=== PATIENT | female | born 1950 | race African-American/Black ===

== ENCOUNTER 2016-09-10 18:53 | Emergency (ER) | payer MEDICARE, BC ==
[2016-09-10 19:27] VITALS: BP 164/73
--- NOTE | 2016-09-10 21:14 | RADIOLOGY REPORT (SQ) ---
EXAM DESCRIPTION: SHOULDER RIGHT 2 OR MORE VIEWS COMPLETED DATE/TIME: 09/10/2016 8:54 pm REASON FOR STUDY: Fall, rt shoulder pain COMPARISON: None. NUMBER OF VIEWS: Three views. TECHNIQUE: Internal rotation, external rotation, and Y view images acquired of the right shoulder. LIMITATIONS: None. FINDINGS: MINERALIZATION: Normal. BONES: No acute fracture or dislocation. No worrisome bone lesions. JOINTS: No dislocation. VISUALIZED LUNGS AND RIBS: No pneumothorax. No rib fracture. SOFT TISSUES: No radiopaque foreign body. OTHER: No other significant finding. IMPRESSION: NEGATIVE STUDY OF THE RIGHT SHOULDER. NO RADIOGRAPHIC EVIDENCE OF ACUTE INJURY. TECHNICAL DOCUMENTATION: JOB ID: [id number] [employer]- All Rights Reserved
--- NOTE | 2016-09-10 21:15 | RADIOLOGY REPORT (SQ) ---
EXAM DESCRIPTION: TIBIA FIBULA LEFT COMPLETED DATE/TIME: 09/10/2016 8:54 pm REASON FOR STUDY: Fall, left leg pain and swelling COMPARISON: None. NUMBER OF VIEWS: Two views. TECHNIQUE: Two radiographic images acquired of the left tibia and fibula to include the knee and ank le in at least one projection. LIMITATIONS: None. FINDINGS: MINERALIZATION: Normal. BONES: No acute fracture or dislocation. No worrisome bone lesions. SOFT TISSUES: No obvious swelling or foreign body. OTHER: Patient is status post left total knee replacement. IMPRESSION: Status post left total knee replacement. NO RADIOGRAPHIC EVIDENCE OF ACUTE INJURY. TECHNICAL DOCUMENTATION: JOB ID: [id number] [employer]- All Rights Reserved
--- NOTE | 2016-09-10 21:42 | ER Document Report ---
ED Fall - General Chief Complaint: Arm Pain Stated Complaint: FALL/SHOULDER Time Seen by Provider: 09/10/16 20:58 Mode of Arrival: Wheelchair Information source: Patient Notes: 66-year-old female presents to ED for right shoulder and left lower leg pain. She was working in a flower while at bed sprain aunts when she tripped and fell landing on a piece of cement in her yard. He has a history of rheumatoid arthritis and bilateral knee replacement. TRAVEL OUTSIDE OF THE [place] IN LAST 30 DAYS: No - HPI Occurred: This afternoon Where: Home, Outdoors Context: Tripped Associated symptoms: None Location of injury/pain: Shoulder, Lower extremity Quality of pain: Achy, Sharp, Throbbing Severity: Mild Pain Level: 2 - Related data Allergies/Adverse Reactions: shellfish derived Allergy (Verified 03/10/16 10:20) Past Medical History - General Information source: Patient - Social History Smoking Status: Never Smoker Cigarette use (# per day): No Chew tobacco use (# tins/day): No Smoking Education Provided: No Frequency of alcohol use: None Drug Abuse: None Lives with: Family Family History: Reviewed & Not Pertinent Patient has suicidal ideation: No Patient has homicidal ideation: No - Past Medical History Cardiac Medical History: Reports: Hx Hypertension Pulmonary Medical History: Reports: None EENT Medical History: Reports: None Neurological Medical History: Reports: None Endocrine Medical History: Reports: None Renal/ Medical History: Reports: None Malignancy Medical History: Reports: None GI Medical History: Reports: Hx Gastroesophageal Reflux Disease, Hx Colonoscopy , Hx Endoscopy Musculoskeltal Medical History: Reports Hx Arthritis - rheumatoid Skin Medical History: Reports None Psychiatric Medical History: Reports: None Traumatic Medical History: Reports: None Infectious Medical History: Reports: None Past Surgical History: Reports: Hx Appendectomy, Hx Breast Surgery - Biopsy, Hx Cholecystectomy, Hx Orthopedic Surgery - BL knee replacement - Immunizations Hx Diphtheria, Pertussis, Tetanus Vaccination: Yes Review of Systems - Review of Systems Constitutional: No symptoms reported EENT: No symptoms reported Cardiovascular: No symptoms reported Respiratory: No symptoms reported Gastrointestinal: No symptoms reported Genitourinary: No symptoms reported Female Genitourinary: No symptoms reported Musculoskeletal: Other - Right shoulder and left lower leg pain Skin: Change in color, Other - Ecchymosis and very small abrasion to the left lower leg Hematologic/Lymphatic: No symptoms reported Neurological/Psychological: No symptoms reported Physical Exam - Vital signs Vitals: Temp Pulse Resp BP Pulse Ox 98.2 F 72 16 164/73 H 94 09/10/16 19:23 09/10/16 19:23 09/10/16 19:23 09/10/16 19:23 09/10/16 19:23 Interpretation: Normal - General General appearance: Appears well, Alert - HEENT Head: Normocephalic, Atraumatic Eyes: Normal Pupils: PERRL - Respiratory Respiratory status: No respiratory distress Chest status: Nontender Breath sounds: Normal Chest palpation: Normal - Cardiovascular Rhythm: Regular Heart sounds: Normal auscultation Murmur: No - Abdominal Inspection: Normal Distension: No distension Bowel sounds: Normal Tenderness: Nontender Organomegaly: No organomegaly - Back Back: Normal, Nontender - Extremities General upper extremity: Normal color, Normal temperature General lower extremity: Normal ROM, Normal temperature, Normal weight bearing. No: Ju's sign Shoulder: Tender, Limited ROM - The pain. No: Normal, Nontender, Abrasion, Deformity, Dislocation, Ecchymosis, Instability, Laceration, Other Arm: Normal, Nontender Elbow: Normal, Nontender Forearm: Normal, Nontender Wrist: Normal, Nontender Hand: Normal, Nontender Hip: Normal, Nontender Thigh: Normal, Nontender Knee: Normal, Nontender Calf: Tender, Abrasion - I will, Ecchymosis. No: Normal, Nontender, Deformity, Instability, Laceration, Unable to bear weight, Other Ankle: Normal, Nontender Foot: Normal, Nontender - Neurological Neuro grossly intact: Yes Cognition: Normal Orientation: AAOx4 [place] Coma Scale Eye Opening: Spontaneous Rafa Coma Scale Verbal: Oriented Rafa Coma Scale Motor: Obeys Commands Rafa Coma Scale Total: 15 Speech: Normal Motor strength normal: LUE, RUE, LLE, RLE Sensory: Normal - Psychological Associated symptoms: Normal affect, Normal mood - Skin Skin Temperature: Warm Skin Moisture: Dry Skin Color: Normal Course - Re-evaluation Re-evalutation: 09/10/16 22:02 Discussed chest x-rays with patient and family. Patient instructed on need to move shoulder and to continue her exercises as she has rheumatoid arthritis. Patient was treated with Toradol and Percocet in the emergency room for her pain and discharged home with a prescription for Percocet. Patient takes Aleve for her arthritis as well as other rheumatoid arthritis medications. Patient instructed on use of ice anti-inflammatory medication and exercise for her pain. - Vital Signs Vital signs: Temp Pulse Resp BP Pulse Ox 98.2 F 72 16 164/73 H 94 09/10/16 19:23 09/10/16 19:23 09/10/16 19:23 09/10/16 19:23 09/10/16 19:23 - Diagnostic Test Radiology reviewed: Image reviewed, Reports reviewed Discharge - Discharge Clinical Impression: Fall Qualifiers: Encounter type: initial encounter Qualified Code(s): W19.XXXA - Unspecified fall, initial encounter Right shoulder injury Qualifiers: Encounter type: initial encounter Qualified Code(s): S49.91XA - Unspecified injury of right shoulder and upper arm, initial encounter Contusion of left lower leg, initial encounter Qualifiers: Encounter type: initial encounter Qualified Code(s): S80.12XA - Contusion of left lower leg, initial encounter Additional Instructions: CONTUSION: Your injury has resulted in a contusion -- a crushing of the deep tissues. No injury to important structures was detected during the physician's exam. Contusions vary in the amount of pain they cause, and in the length of time required for healing. Typically, the area will become bruised, and will remain painful to touch for two or three weeks. However, most patients are back to working and playing within a few days. After the initial period of rest and cold-packs, your symptoms (together with the doctor's recommendations) will determine how rapidly you can get back to full activity. Usually this means "do what feels okay, but don't do things that hurt." If re-examination was recommended, it's important to follow up as instructed. Call the doctor or return any time if pain increases, if swelling becomes severe, if you develop numbness or weakness in an injured extremity, or if any other alarming symptoms occur. ABRASIONS: An abrasion is a scraping injury of the skin. Some scarring may result. The seriousness of an abrasion is not always obvious at first. Hidden tissue damage may be present and infection may occur despite proper care. Complete healing may take from ten days to as long as a month. The healing time depends on the depth of the abrasion, and on the amount of crushing of underlying tissues from the injury. Keep the wound and dressing clean. Do not shower or bathe the area until okayed by the doctor. If the dressing gets wet, remove it and blot the wound dry, then reapply a clean dressing. Dressings should be changed every day. Sunscreen should be used for six months after the skin is healed. If any signs of infection occur (swelling, redness, increasing tenderness, red streaks, profuse purulent drainage from the abrasion, tender lumps in the armpit or groin above the abrasion, or fever), see the doctor immediately. Shoulder Injury You have injured your shoulder. This usually results from stretching or tearing of the tendons during trauma. Time and protection are required in order to heal properly. Many injuries are quite disabling, and should be taken seriously. Initial treatment includes cold packs and a sling to rest the shoulder. The physician has assessed the seriousness of your injury, and has outlined a treatment plan. Understand that this treatment may change, depending on how you progress. If a re-examination was recommended, it is important that you follow up as instructed. Some shoulder injuries (such as partial tear of the rotator cuff) are only suspected after you've failed to improve. Call us if there's severe pain, numbness, or loss of function. ICE PACKS: Apply ice packs frequently against the painful area. Many different schedules are recommended, such as "20 minutes on, 20 minutes off" or "one hour ice, two hours rest." If you need to work, you may need to go longer between ice treatments. You should plan to have the area ice packed AT LEAST one fourth of the time. The ice should be applied over the wrap, tape, or splint, or over a layer of cloth -- not directly against the skin. Some ice bags have a built-in cloth and can be put directly on the skin. WARM PACKS: After approximately two days, apply gentle heat (such as a heating pad or hot water bottle) for about 20 to 30 minutes about every two hours -- at least four times daily. Warmth and elevation will help you make a more rapid recovery , and will ease the pain considerably. Do not use HOT heat, and never apply heat for longer than 30 minutes. The continuous heat can invisibly damage skin and muscles -- even when no burn is seen on the surface. Damaged muscles can make you MORE sore. Anti-Inflammatory Medication You have received a prescription for an antiinflammatory agent. This is an excellent, safe drug for pain control. In addition, it has potent antiinflammatory effects which are beneficial, especially in the treatment of injuries, arthritis, or tendonitis. It's best to take this medicine with food. Persons with ulcer disease or allergy to aspirin should notify their physician of this before taking this drug. Take the medication exactly as prescribed. Don't take additional doses unless instructed to do so by your doctor. If you develop wheezing, shortness of breath, hives, faintness, stomach pain, vomiting, or dark black stools, return for re-evaluation at once. Oral Narcotic Medication You have been given a prescription for pain control. This medication is a narcotic. It's best taken with food, as nausea can result if taken on an empty stomach. Don't operate machinery or drive within six hours of taking this medication. Do not combine this medicine with alcohol, or with any medication which can cause sedation (such as cold tablets or sleeping pills) unless you get permission from the physician. Narcotics tend to cause constipation. If possible, drink plenty of fluids and eat a diet high in fiber and fruits. FOLLOW-UP CARE: If you have been referred to a physician for follow-up care, call the physician s office for an appointment as you were instructed or within the next two days. If you experience worsening or a significant change in your symptoms, notify the physician immediately or return to the Emergency Department at any time for re-evaluation. Call your orthopedic doctor in the morning and reveal a follow-up visit for your shoulder injury. Prescriptions: Oxycodone HCl/Acetaminophen [Percocet 5-325 mg Tablet] 1 tab PO Q6HP PRN #15 tablet PRN Reason: Forms: Elevated Blood Pressure Referrals: ALBANIA ADHIKARI MD [Primary Care Provider] - Follow up as needed
[2016-09-10] MEDS ORDERED: KETOROLAC TROMETHAMINE 60 MG/2 ML SDV IM ONE (21:51)
[2016-09-10] MEDS ORDERED: OXYCODONE-ACETAMINOPHEN 5-325 MG TABLET PO ONE (21:51)
== END 2016-09-10 22:09 | disposition home or self-care (01) ==
LOC: ER 18:53
DX: S49.91XA Unspecified injury of right shoulder and upper arm, initial encounter (principal); S80.12XA Contusion of left lower leg, initial encounter; W01.198A Fall on same level from slipping, tripping and stumbling with subsequent striking against other object, initial encounter; Y92.007 Garden or yard of unspecified non-institutional (private) residence as the place of occurrence of the external cause; I10 Essential (primary) hypertension; Z91.013 Allergy to seafood; Z96.653 Presence of artificial knee joint, bilateral
CPT/HCPCS: 99283; 96372; 73030; 73590; J1885; A9270

== ENCOUNTER → 2016-10-02 | Outpatient (CLI) | payer MEDICARE, BC ==
--- NOTE | 2016-10-02 11:15 | RADIOLOGY REPORT (SQ) ---
EXAM DESCRIPTION: MRI RT UPPER JOINT WITHOUT COMPLETED DATE/TIME: 10/02/2016 10:46 am REASON FOR STUDY: RIGHT SHOULDER PAIN M25.511 PAIN IN RIGHT SHOULDER COMPARISON: 09/10/2016 TECHNIQUE: Right shoulder images acquired and stored on PACS. Multiplanar imaging to include fat sen sitive sequences such as T1, water sensitive sequences such as FST2/STIR, cartilage sensitive sequenc es such as FSPD/gradient-echo sequences. LIMITATIONS: None. FINDINGS: BONE MARROW AND CORTEX: A hairline nondisplaced fracture through the right proximal humeru s is present, extending through the greater tuberosity, this is best shown on sagittal T1 images 6 th rough 9, coronal image 12, and axial image 9. JOINT OR BURSAL EFFUSION: Small joint effusion. Trace fluid in the subacromial/subdeltoid bursa. GLENO-HUMERAL ARTICULATION: Normal alignment. No subluxation. No cystic change. No osteophytes. Mini mal chondromalacia. ACROMION AND AC JOINT: Type 2, with mild acromioclavicular joint hypertrophy. No down-sloping or dis sarah beth spur. Mild narrowing of the subacromial space. ROTATOR CUFF AND INTERVAL: There is mild undersurface high signal in the distal supraspinatus and inf raspinatus tendons from mild tendinopathy. No full-thickness tear. subscapularis intact. No rotator interval tear. No rotator interval thickening to suggest adhesive capsulitis. LABRUM AND BICEPS LABRAL COMPLEX: Intact. No labral tear. Intra-articular long-head biceps tendon n ormal. Distal biceps in normal location in bicipital groove. REMAINDER OF LABRUM AND IGHL : No gross tear or paralabral cyst formation. Labral evaluation is less than optimal without joint distention. No thickening of IGHL to suggest adhesive capsulitis. PERIARTICULAR AND ADJACENT SOFT TISSUES: No masses or abnormal nodes. OTHER: No other significant finding. IMPRESSION: Nondisplaced fracture of the right proximal humerus along the greater tuberosity, with m ild marrow edema. Mild undersurface tendinopathy of the supra and infraspinatus tendons TECHNICAL DOCUMENTATION: JOB ID: [id number] [employer]- All Rights Reserved
== END ==
LOC: RAD 08:41
PROVIDERS: ATTEND Orthopaedic Surgery Sports Medicine
DX: M25.511 Pain in right shoulder (principal); S42.254A Nondisplaced fracture of greater tuberosity of right humerus, initial encounter for closed fracture; X58.XXXA Exposure to other specified factors, initial encounter

== ENCOUNTER → 2017-03-23 | Outpatient (CLI) | payer MEDICARE, BC ==
--- NOTE | 2017-03-23 11:10 | RADIOLOGY REPORT (SQ) ---
EXAM DESCRIPTION: CAROTID DOPPLER COMPLETED DATE/TIME: 03/23/2017 9:48 am REASON FOR STUDY: RETINAL VEIN OCCLUSION H34.8322 TRIBUTARY (BRANCH) RETINAL VEIN OCCLUSION, LEFT E YE COMPARISON: None. TECHNIQUE: Grayscale ultrasound, Doppler velocity and spectra, and color Doppler images acquired of the extra-cranial carotid and vertebral arteries. Images stored on PACS. LIMITATIONS: None. FINDINGS: RIGHT CAROTID CCA Velocities: Within normal limits. ICA Velocities Peak systolic 0.70 m/s. End diastolic 0.20 m/s. Proximal ICA/CCA peak systolic ratio 0.9. Spectra normal. No significant plaque. Carotid bifurcation deep in the right neck. LEFT CAROTID CCA Velocities: Within normal limits. ICA Velocities Peak systolic 0.71 m/s. End diastolic 0.24 m/s. Proximal ICA/CCA peak systolic ratio 1.1. Spectra normal. No significant plaque. VERTEBRAL ARTERIES: Antegrade flow. Normal waveforms. SUBCLAVIAN ARTERIES: Not evaluated OTHER: No other significant finding. IMPRESSION: NO HEMODYNAMICALLY SIGNIFICANT STENOSIS. COMMENT: Quality ID #[id number]: Velocity criteria are extrapolated from the diameter data as defined by t he Society of Radiologists in Ultrasound Consensus Conference. Radiology 2003: 229; 340-346. TECHNICAL DOCUMENTATION: JOB ID: [id number] [employer]- All Rights Reserved
== END ==
LOC: SP 08:04
PROVIDERS: ATTEND Family Medicine
DX: H34.8322 Tributary (branch) retinal vein occlusion, left eye, stable (principal)
CPT/HCPCS: 93880

== ENCOUNTER 2018-12-13 13:45 | Emergency (ER) | payer MEDICARE, BC ==
[2018-12-13] MEDS ORDERED: LIDOCAINE 5% (700 MG) TRANSDERMAL ADH..PATCH TP ONE (14:15)
[2018-12-13] MEDS ORDERED: DEXAMETHASONE SOD PHOS INJ 10 MG/1 ML VIAL IM ONE (14:15)
[2018-12-13] MEDS ORDERED: KETOROLAC TROMETHAMINE INJ/PF 30 MG/1 ML SDV IM ONE (14:15)
--- NOTE | 2018-12-13 14:37 | ER Document Report ---
HPI - HPI Time Seen by Provider: 12/13/18 14:00 Pain Level: 5 Context: Patient is a 68-year-old female with a history of hypertension, sciatica and arthritis who presents to the emergency department with a chief complaint of left lower back pain. Patient states she has had left lower back pain over the past week that seems to radiate down the left leg. Patient reports this pain is a sharp burning type pain. Patient states that radiates down her leg is located on the posterior aspect of the thigh and then wraps around into her maher. Patient reports that walking and position changes make the pain worse. Patient states she did go to the chiropractor last Wednesday without relief. Patient states she has been taking Aleve and gabapentin. Patient denies a fall or recent injury. Patient denies numbness or tingling to the groin or rectal area. Patient states that time she will have left foot numbness but is able to ambulate. Patient denies loss of bowel or bladder. - CONSTITUTIONAL Constitutional: DENIES: Fever, Chills - REPRODUCTIVE Reproductive: DENIES: : - MUSCULOSKELETAL Musculoskeletal: REPORTS: Extremity pain - L hip, L leg Past Medical History - General Information source: Patient - Social History Smoking Status: Never Smoker Frequency of alcohol use: None Drug Abuse: None Lives with: Spouse/Significant other Family History: Reviewed & Not Pertinent Patient has suicidal ideation: No Patient has homicidal ideation: No - Past Medical History Cardiac Medical History: Reports: Hx Hypertension Pulmonary Medical History: Reports: None EENT Medical History: Reports: None Neurological Medical History: Reports: None Endocrine Medical History: Reports: None Renal/ Medical History: Reports: None. Denies: Hx Peritoneal Dialysis Malignancy Medical History: Reports: None GI Medical History: Reports: Hx Gastroesophageal Reflux Disease, Hx Colonoscopy, Hx Endoscopy Musculoskeletal Medical History: Reports Hx Arthritis - rheumatoid Skin Medical History: Reports None Psychiatric Medical History: Reports: None Traumatic Medical History: Reports: None Infectious Medical History: Reports: None Past Surgical History: Reports: Hx Appendectomy, Hx Breast Surgery - Biopsy, Hx Cholecystectomy, Hx Orthopedic Surgery - BL knee replacement - Immunizations Hx Diphtheria, Pertussis, Tetanus Vaccination: Yes Vertical Provider Document - CONSTITUTIONAL Agree With Documented VS: Yes Exam Limitations: No Limitations General Appearance: No Apparent Distress - INFECTION CONTROL TRAVEL OUTSIDE OF THE [place] IN LAST 30 DAYS: No - HEENT HEENT: Atraumatic, Normocephalic, PERRLA - RESPIRATORY Respiratory: Breath Sounds Normal, No Respiratory Distress - CARDIOVASCULAR Cardiovascular: Regular Rate, Regular Rhythm - GI/ABDOMEN Gastrointestinal: Abdomen Soft, Abdomen Non-Tender, Normal Bowel Sounds - BACK Back: Normal Inspection Notes: Tenderness with palpation to the left latissimus dorsi muscle and thoracolumbar fasia, and left gluteus edyta. Patient has positive sensation to the left extremity and has full range of motion. There is no edema, erythema or ecchymosis noted to the lower back. There is no cervical, thoracic or lumbar midline tenderness. - NEURO Level of Consciousness: Awake, Alert, Appropriate - DERM Integumentary: Warm, Dry, No Rash Course - Re-evaluation Re-evalutation: 12/13/18 14:52 We will treat the patient with Lidoderm patch, dose of steroids and anti- inflammatory. I did inform the patient to continue using her gabapentin, anti- inflammatories, and to keep her appointment with physical therapy as this may help her. Patient to continue using cool compresses or if it feels better to use warm compresses. Patient given strict return precautions or to return if symptoms worsen. 12/13/18 17:33 This is late entry but prior to discharge patient states her pain was completely gone. Patient reports that she feels much relief. Patient to continue with the regimen plan that we have discussed and gone over. Patient verbalized understanding and stable for discharge. - Vital Signs Vital signs: Temp Pulse Resp BP Pulse Ox 98.4 F 98 20 181/88 H 95 12/13/18 13:51 12/13/18 13:51 12/13/18 13:51 12/13/18 13:51 12/13/18 13:51 Discharge - Discharge Clinical Impression: Sciatica Qualifiers: Laterality: left Qualified Code(s): M54.32 - Sciatica, left side Condition: Stable Disposition: HOME, SELF-CARE Instructions: Low Back Pain ([facility]) Additional Instructions: Today you are seen in the emergency department for left lower back pain. You have stated that this pain radiates into the left lower extremity and feels like your previous history of sciatica. We have given you a dose of steroids and a shot of Toradol which is an anti-inflammatory. Please continue to use cool compresses to the site. Continue use the gabapentin which is a type of medication used for nerve pain as previously prescribed by your physician. Keep your appointment with physical therapy as this can help with your sciatica. Until he go to physical therapy please rest. Please return to the emergency department if you have any increasing numbness, localized weakness to the foot or ankle or if your pain does not respond to the interventions. I have also given you lidocaine patches. This helps with your pain. Most common reaction is a localized reaction or rash from the patch. This does not make you drowsy. Sciatica Your symptoms suggest "sciatica." The pain of sciatica typically radiates down the leg. Numbness in the foot or calf may also occur. Sciatica is caused by irritation of the sciatic nerve or its branches. The irritation can be due to a herniated disk in the spine, swelling and inflammation in the muscles surrounding the sciatic nerve, or direct injury of the nerve itself. Most cases of sciatica will resolve with medical treatment. Bed rest is usually recommended initially. Surgery is only necessary when the condition will not improve with rest and antiinflammatory medication. Muscle relaxers are often given if muscle soreness is present. A CAT scan of the back may be performed if a herniated disk is suspected. Re-examination is necessary if you develop increasing numbness, localized weakness in the foot or ankle, or if the pain does not respond to rest. Prescriptions: Lidocaine [Lidoderm 5% (700 mg) Transdermal Patch] 1 patch TP DAILY #10 adh..patch Methocarbamol [Robaxin 500 mg Tablet] 1,000 mg PO TID #15 tablet Referrals: ALBANIA ADHIKARI MD [Primary Care Provider] - Follow up as needed
[2018-12-13] MEDS: DEXAMETHASONE SOD PHOS INJ 10 MG/1 ML VIAL ONE ×2 (15:18→15:25)
[2018-12-13] MEDS: KETOROLAC TROMETHAMINE INJ/PF 30 MG/1 ML SDV ONE ×2 (15:18→15:25)
[2018-12-13] MEDS: LIDOCAINE 5% (700 MG) TRANSDERMAL ADH..PATCH ONE ×2 (15:18→15:25)
[2018-12-13 15:32] VITALS: BP 146/83
== END 2018-12-13 15:49 | disposition home or self-care (01) ==
LOC: ER 13:45
DX: M54.32 Sciatica, left side (principal); M54.5 Low back pain; I10 Essential (primary) hypertension; Z90.49 Acquired absence of other specified parts of digestive tract; Z96.653 Presence of artificial knee joint, bilateral
CPT/HCPCS: 99283; J1885; J1100

== ENCOUNTER 2019-03-06 06:28 | Day surgery (SDC) | payer MEDICARE, BC ==
[2019-02-28 10:02] LABS: HEMATOCRIT 39.9 % (36.0-47.0); HEMOGLOBIN 13.2 g/dL (12.0-15.5); MEAN CORPUSCULAR HEMOGLOBIN 27.4 pg (27.0-33.4); MEAN CORPUSCULAR HGB CONC 33.2 g/dL (32.0-36.0); MEAN CORPUSCULAR VOLUME 83 fl (80-97); PLATELET COUNT 355 10^3/uL (150-450); RED BLOOD COUNT 4.83 10^6/uL (3.72-5.28); RED CELL DISTRIBUTION WIDTH 14.5 % (11.5-14.0); WHITE BLOOD COUNT 5.8 10^3/uL (4.0-10.5)
[2019-02-28 10:14] LABS: APPEARANCE,URINE SLIGHTLY-CLOUDY; BILIRUBIN,URINE NEGATIVE (NEGATIVE); COLOR,URINE YELLOW; GLUCOSE, URINE NEGATIVE (NEGATIVE); KETONES,URINE NEGATIVE (NEGATIVE); LEUKOCYTE ESTERASE,URINE MODERATE (NEGATIVE); NITRITE,URINE NEGATIVE (NEGATIVE); PROTEIN,URINE NEGATIVE (NEGATIVE); URINE SPECIFIC GRAVITY 1.017; UROBILINOGEN,URINE NEGATIVE mg/dL (<2.0)
--- NOTE | 2019-02-28 12:16 | EKG REPORT ---
SEVERITY:- NORMAL ECG - SINUS RHYTHM : Confirmed by: Joe Vogel MD 28-Feb-2019 12:15:34
[~2019-03-06 06:28] MED LIST: CEFAZOLIN SODIUM 1 GM in DEXTROSE 5%-WATER 50 ML IV PRN; LACTATED RINGERS 1000 ML IV PRN; LIDOCAINE 0.5% INJ-PF (5 MG/ML) 50 ML SDV SUBCUT PRN
[2019-03-06] MEDS ORDERED: MIDAZOLAM 2 MG/2 ML INJ ONE (06:46)
[2019-03-06] MEDS ORDERED: PROPOFOL INJ 200 MG/20 ML VIAL IV ONE (06:46)
[2019-03-06] MEDS ORDERED: FENTANYL CITRATE INJ/PF 100 MCG/2 ML AMPUL ONE (06:46)
[2019-03-06] MEDS ORDERED: KETOROLAC TROMETHAMINE 60 MG/2 ML SDV ONE (08:17)
[2019-03-06] MEDS ORDERED: ONDANSETRON HCL INJ/PF 4 MG/2 ML SDV ONE (08:17)
[2019-03-06] MEDS ORDERED: DEXAMETHASONE SOD PHOSPHATE INJ 4 MG/1 ML VIAL ONE (08:17)
[2019-03-06] MEDS ORDERED: LIDOCAINE 1%/EPINEPHRINE INJ 20 ML VIAL ONE (08:21)
[2019-03-06] MEDS ORDERED: VASOPRESSIN INJ 20 UNIT/1 ML VIAL ONE (08:21)
[2019-03-06] MEDS ORDERED: DIPHENHYDRAMINE HCL 50 MG/ML VIAL IV PRN (08:47)
[2019-03-06] MEDS ORDERED: MORPHINE SULFATE 10 MG/ML INJ IV PRN (08:47)
[2019-03-06] MEDS ORDERED: ONDANSETRON HCL INJ/PF 4 MG/2 ML SDV IV PRN (08:47)
[2019-03-06] MEDS ORDERED: FENTANYL CITRATE INJ/PF 100 MCG/2 ML AMPUL IV PRN ×3 (08:47)
[2019-03-06] MEDS ORDERED: OXYCODONE-ACETAMINOPHEN 5-325 MG TABLET PO PRN ×3 (08:47→10:16)
[2019-03-06] MEDS ORDERED: MEPERIDINE HCL/PF INJ 25 MG/1 ML DISP.SYRIN IV PRN (08:47)
--- NOTE | 2019-03-06 09:21 | Operative Report ---
Operative Report DATE OF SURGERY: 03/06/19 PREOPERATIVE DIAGNOSIS: PMB abnormal Pap POSTOPERATIVE DIAGNOSIS: Same plus endometrial polyp OPERATION: Hysteroscopy D&C: Cold knife cone SURGEON: QIAN CORRALES ANESTHESIA: Moderate Sedation TISSUE REMOVED OR ALTERED: Endometrial tissue and polyp cervical tissue and ECC COMPLICATIONS: None ESTIMATED BLOOD LOSS: Less than 10 cc INTRAOPERATIVE FINDINGS: Endometrial polyp PROCEDURE: Patient was placed in a dorsal lithotomy position prepped draped sterile fashion. The cervix was prolapse to the introitus was grasped with a single- tooth tenaculum sounded to a depth of 11 cm. Cervix was dilated to admit the hysteroscope hysteroscopy was performed with findings of atrophic endometrium and endometrial polyp. Sharp curettage was then performed and repeat hysteroscopy showed the polyp had been removed. No other overt abnormalities were noted. The cone was then performed by placing hemostatic sutures 2-0 Vicryl at 3 and 9:00. Cervix was injected with dilute solution of Pitressin and Xylocaine. Wounds were made at 369 and 12 and these were connected with sharp dissection and the cone was removed intact. ECC was done. The cone bed was then cauterized hemostasis was noted pledget of Gelfo[place] soaked in [place] was placed in the office and the hemostatic sutures previously placed were plicated in the midline. The second through the night was removed. The procedure terminated. Patient was taken to recovery room in good condition.
[2019-03-06] MEDS ORDERED: ONDANSETRON HCL 8 MG TABLET PO PRN (10:16)
[2019-03-06 11:07] VITALS: BP 154/89
[2019-03-06] MEDS ORDERED: IBUPROFEN 800 MG TABLET PO SCH (14:00)
== END 2019-03-06 10:55 | disposition home or self-care (01) ==
LOC: OROUT 06:28
PROVIDERS: ATTEND Obstetrics & Gynecology Gynecology
DX: N87.1 Moderate cervical dysplasia (principal); N84.0 Polyp of corpus uteri; I10 Essential (primary) hypertension; Z79.899 Other long term (current) drug therapy
CPT/HCPCS: 93005; 36415; 85027; 81001; 88305 ×2; 88307 ×2; 93010; 00952; 58558; 57520; J2250; J0690; J1100; J1885; J3010; J3490 ×2; J2405; J7060; J2704; 952